=== PATIENT | female | born 1980 | race Caucasian/White ===

== ENCOUNTER 2019-08-25 07:14 | Emergency (ER) | payer MEDICAID ==
[~2019-08-25] VITALS: Ht 157.5 cm; Wt 50.8 kg
[2019-08-25 07:21] VITALS: Ht 157.5 cm; Wt 50.8 kg
[2019-08-25 08:38] LABS: microscopic required? YES; urine erythrocyte 2+ (NEGATIVE)
[2019-08-25 08:39] LABS: CARBON DIOXIDE 23.4 mmol/L (21-32); CHLORIDE SERUM 107 mmol/L (98-107); CREATININE SERUM 0.8 mg/dL (0.6-1.0); GFR1 > 60 mL/min; GLUCOSE SERUM 98 mg/dL (74-106); POTASSIUM SERUM 3.6 mmol/L (3.5-5.1); SODIUM SERUM 141 mmol/L (136-145)
[2019-08-25 08:40] LABS: BASOPHIL % 0.6 % (0-2); PLATELET COUNT 216 x10^3mcL (130-400)
[2019-08-25 08:43] LABS: ALBUMIN 3.9 g/dL (3.4-5.0); ALKALINE PHOSPHATASE 89 U/L (46-116); ALT/SGPT 23 U/L (14-59); AMYLASE 32 U/L (25-115); AST/SGOT 10 U/L (15-37); BILIRUBIN TOTAL 0.46 mg/dL (0.20-1.00); LIPASE 139 IU/L (73-393); TOTAL PROTEIN, SERUM 7.7 g/dL (6.4-8.2)
[2019-08-25 12:10] VITALS: BP 108/68
== END 2019-08-25 12:10 | disposition home or self-care (01) ==
LOC: ED 07:14
PROVIDERS: Emergency Medicine
DX: K80.50 Calculus of bile duct without cholangitis or cholecystitis without obstruction (principal)
CPT/HCPCS: J0696; J1885; J2405; J7030; J7060; Q0092